=== PATIENT | male | born 1945 | race Caucasian/White ===

== ENCOUNTER → 2023-12-26 12:31 | Outpatient (REF) | payer MEDICARE, SELFPAY | LOC: DHCBS MAIN 12:31 | PROVIDERS: ATTENDING PHYSICIAN Internal Medicine Cardiovascular Disease; FAMILY PHYSICIAN Family Medicine | DX: I37.0 Nonrheumatic pulmonary valve stenosis (principal) | CPT/HCPCS: 93306 ==

== ENCOUNTER → 2024-11-18 15:17 | Outpatient (REF) | payer MEDICARE, SELFPAY | LOC: RAD 15:17 | PROVIDERS: ATTENDING PHYSICIAN Specialist; FAMILY PHYSICIAN Family Medicine | DX: I10 Essential (primary) hypertension (principal); R60.0 Localized edema | CPT/HCPCS: 93970 ==